=== PATIENT | male | born 1970 | race Caucasian/White ===

== ENCOUNTER → 2016-09-10 | Outpatient (CLI) | payer BC, OTHER ==
--- NOTE | 2016-09-10 19:10 | REP ---
Left knee five views: There is no fracture or dislocation. Mineralization joint spaces are normal. There is a suprapatellar hemarthrosis/effusion. There are no calcifications or foreign bodies. Signed by Luis Dietz MD 09/10/2016 07:01 P
== END ==
LOC: M WUC 17:28
PROVIDERS: ATTEND Physician Assistant
DX: S83.412A Sprain of medial collateral ligament of left knee, initial encounter (principal)

== ENCOUNTER → 2020-09-12 | Outpatient (REF) | payer OTHER, BC ==
[2020-09-14 08:09] LABS: LDL DIRECT 67 mg/dL (0-99)
== END ==
LOC: M LAB REF 11:20
PROVIDERS: ATTEND Family Medicine
DX: Z13.220 Encounter for screening for lipoid disorders (principal)

== ENCOUNTER 2023-12-01 07:03 | Day surgery (SDC) | payer BC ==
[~2023-12-01] VITALS: Ht 170.2 cm; Wt 90.6 kg
[~2023-12-01 07:03] MED LIST: CETI10CH PO; FLON1SPR; GLUC1CAP10 PO; MULTTAB86 PO; propofoL 200 MG/20 ML VIAL As Ordered ONE; propofoL 500 MG/50 ML VIAL As Ordered ONE
[2023-12-01] MEDS: NS 1,000 ML IV ONE (07:25)
[2023-12-01 08:28] VITALS: TEMP 97.8
[2023-12-01 08:50] VITALS: BP 119/75; O2SAT 97
== END 2023-12-01 09:06 | disposition home or self-care (01) ==
LOC: M OPP 07:03
PROVIDERS: ATTEND Internal Medicine Gastroenterology
DX: Z12.11 Encounter for screening for malignant neoplasm of colon (principal); Z12.12 Encounter for screening for malignant neoplasm of rectum; D12.5 Benign neoplasm of sigmoid colon; K64.8 Other hemorrhoids; Z79.899 Other long term (current) drug therapy